=== PATIENT | male | born 1975 | race African-American/Black ===

== ENCOUNTER 2024-07-17 14:29 | Emergency (ER) | payer OTHER ==
[2024-07-17 14:47] VITALS: BP 141/88; PULSE 65; RESP 18; TEMP 98.1; BMI 24.3
[2024-07-17] MEDS ORDERED: IBUPROFEN 600 MG TABLET (FP) PO ONE (14:55)
[2024-07-17] MEDS: IBUPROFEN 600 MG TABLET (FP) PO ONE (14:58)
== END 2024-07-17 15:31 | disposition home or self-care (01) ==
LOC: JERFT 14:29
DX: M54.2 Cervicalgia (principal); T63.441A Toxic effect of venom of bees, accidental (unintentional), initial encounter
CPT/HCPCS: 99283-25